=== PATIENT | female | born 1965 | race Hispanic/Latino ===

== ENCOUNTER 2017-09-03 16:17 | Emergency (ER) ==
[~2017-09-03] VITALS: Ht 144.8 cm; Wt 153.8 kg
--- OUTSIDE RECORDS SUMMARY | 2017-09-03 16:21 | XMS REPORT | Clinical Summary ---
Author Author [facility] Address Unknown Phone Unavailable Care Team Providers Care Beater Boss Name Role Phone Provider, Unknown PCP Unavailable Allergies Active Allergy Reactions Severity Noted Date Comments Penicillins 11/12/2016 Current Medications Prescription Sig. Disp. Refills Start End Date Status Date acetaminophen-codeine Take 1-2 tablets by mouth 15 tablet 0 11/14/19 11/24/19 (TYLENOL WITH CODEINE #3) every 6 (six) hours as 17 17 300-30 mg per tablet needed for moderate pain for up to 10 days. ondansetron ODT (ZOFRAN Take 1 tablet (8 mg 9 tablet 0 11/14/19 ODT) 8 MG disintegrating total) by mouth every 8 17 17 tablet (eight) hours as needed for nausea or vomiting for up to 3 days. Active Problems Not on file Encounters Date Type Specialty Care Team Description 11/12/2016 Emergency Emergency Medicine Bob Mistry MD Flank pain (Primary Dx) - 11/13/2016 after 09/02/2016 Social History Tobacco Use Types Packs/Day Years Used Date Never Smoker Smokeless Tobacco: Never Used Alcohol Use Drinks/Week oz/Week Comments Yes 12 pack every weekend Sex Assigned at Date Recorded Not on file Last Filed Vital Signs Vital Sign Reading Time Taken Blood Pressure 133/68 11/13/2016 2:10 AM CDT Pulse 71 11/13/2016 2:10 AM CDT Temperature 36.6 C (97.9 F) 11/12/2016 11:33 PM CDT Respiratory Rate 18 11/13/2016 2:10 AM CDT Oxygen Saturation 99% 11/13/2016 2:10 AM CDT Inhaled Oxygen - - Concentration Weight 142 kg (312 lb) 11/12/2016 6:39 PM CDT Height 144.8 cm (4' 9") 11/12/2016 6:39 PM CDT Body Mass Index 67.52 11/12/2016 6:39 PM CDT Plan of Treatment Health Maintenance Due Date Last Done Comments PAP SMEAR 11/24/1988 INFLUENZA VACCINE 11/26/2017 Results * ECG 12 lead (11/13/2016 12:44 AM) Component Value Ref Range Ventricular rate 75 Atrial rate 75 FL interval 148 QRSD interval 92 QT interval 412 QTC interval 460 P axis 1 83 QRS axis 1 -61 T wave axis 31 EKG impression Normal sinus rhythm-Left axis deviation-Low voltage QRS-Possible Anterolateral infarct (cited on or before 10-OCT-2013)-Abnormal ECG-In automated comparison with ECG of 10-OCT-2013 04:03,-Significant changes have occurred- Specimen Performing Laboratory [facility] [address] [place] [address] * CT Renal Stone Protocol (11/13/2016 12:40 AM) Specimen Performing Laboratory [facility] [address] [place] [address] RENAL STONE PROTOCOL CLINICAL INDICATION:L flank pain TECHNIQUE: Multidetector CT of the abdomen and pelvis was performed without intravenous administration of iodinated contrast with multiplanar reformats. CT scans are performed using radiation dose reduction techniques (iterative reconstruction and/or automated exposure control). Technical factors are evaluated and adjusted to ensure appropriate moderation of exposure. Automated dose management technology is applied to adjust radiation exposure while achieving a diagnostic quality image. COMPARISON:None. FINDINGS: Lung bases:Clear. Liver:Normal. Gallbladder and biliary:The gallbladder is absent. Clips within the gallbladder fossa. Pancreas:Normal. Spleen:Normal. Gastrointestinal:Scattered colonic diverticula. Large and small bowel are normal in caliber. Appendix is not visualized. No focal inflammatory changes within the right lower quadrant of the abdomen. Adrenals:Normal. Kidneys and ureters: No renal or ureteral calculi are visualized. Minimal left hydroureteronephrosis. Pelvic phleboliths are noted. Urinary bladder: No urinary bladder calculi are visualized. Lymph nodes:No enlarged lymph nodes in the abdomen or pelvis. Peritoneum:No ascites or free air. Vascular:Unremarkable, though evaluation of vessel lumens is limited due to lack of IV contrast. Reproductive organs:Uterus is absent. Prominent left adnexal structure measuring 5.1 x 4.0 cm. Abdominal wall: Small fat-containing periumbilical hernia. Bones:Mild degenerative changes. IMPRESSION: 1. Minimal left hydroureteronephrosis. However, no renal, ureteral, or urinary bladder calculi are visualized. Findings may represent recently passed left ureteral stone or left vesicoureteral reflux/urinary tract infection. 2. Prominent left adnexal structure likely representing left ovary. Pelvic ultrasound could further evaluate if clinically indicated. [facility]-[id number] Procedure Note Interface, Radiology Results Incoming - 11/13/2016 12:[address] RENAL STONE PROTOCOL CLINICAL INDICATION: L flank pain TECHNIQUE: Multidetector CT of the abdomen and pelvis was performed without intravenous administration of iodinated contrast with multiplanar reformats. CT scans are performed using radiation dose reduction techniques (iterative reconstruction and/or automated exposure control). Technical factors are evaluated and adjusted to ensure appropriate moderation of exposure. Automated dose management technology is applied to adjust radiation exposure while achieving a diagnostic quality image. COMPARISON: None. FINDINGS: Lung bases: Clear. Liver: Normal. Gallbladder and biliary: The gallbladder is absent. Clips within the gallbladder fossa. Pancreas: Normal. Spleen: Normal. Gastrointestinal: Scattered colonic diverticula. Large and small bowel are normal in caliber. Appendix is not visualized. No focal inflammatory changes within the right lower quadrant of the abdomen. Adrenals: Normal. Kidneys and ureters: No renal or ureteral calculi are visualized. Minimal left hydroureteronephrosis. Pelvic phleboliths are noted. Urinary bladder: No urinary bladder calculi are visualized. Lymph nodes: No enlarged lymph nodes in the abdomen or pelvis. Peritoneum: No ascites or free air. Vascular: Unremarkable, though evaluation of vessel lumens is limited due to lack of IV contrast. Reproductive organs: Uterus is absent. Prominent left adnexal structure measuring 5.1 x 4.0 cm. Abdominal wall: Small fat-containing periumbilical hernia. Bones: Mild degenerative changes. IMPRESSION: 1. Minimal left hydroureteronephrosis. However, no renal, ureteral, or urinary bladder calculi are visualized. Findings may represent recently passed left ureteral stone or left vesicoureteral reflux/urinary tract infection. 2. Prominent left adnexal structure likely representing left ovary. Pelvic ultrasound could further evaluate if clinically indicated. [facility]-[id number] * XR Chest 2 Vw (11/13/2016 12:14 AM) Specimen Performing Laboratory [facility] [address] [place] [address] Narrative EXAMINATION: XR CHEST 2 VW CLINICAL HISTORY: Chest Pain COMPARISON:None. IMPRESSION: Mild pulmonary vascular congestion. No focal or confluent airspace consolidation. No pleural effusion or pneumothorax. The cardiac silhouette is borderline enlarged. Tortuous thoracic aorta. No acute osseous abnormalities. [facility]-[id number] Procedure Note Hm Interface, Radiology Results Incoming - 11/13/2016 12:19 AM CDT EXAMINATION: XR CHEST 2 VW CLINICAL HISTORY: Chest Pain COMPARISON: None. IMPRESSION: Mild pulmonary vascular congestion. No focal or confluent airspace consolidation. No pleural effusion or pneumothorax. The cardiac silhouette is borderline enlarged. Tortuous thoracic aorta. No acute osseous abnormalities. [facility]-[id number] * Estimated GFR (11/12/2016 11:50 PM) Component Value Ref Range GFR Non Af Amer >90 mL/min/1.73 m2 GFR Af Amer >90 mL/min/1.73 m2 Comment: Chronic kidney disease: <60 mL/min/1.73m2 Kidney failure: <15 mL/min/1.73m2 The estimated GFR is calculated from the IDMS-traceable Modification of Diet in Renal Disease Equation. The accuracy of the calculation is poor when the creatinine is normal. Calculated values >90 mL/min/1.73m2 are not reported. This equation has not been validated in children (<18 years), women, the elderly (>70 years), or ethnic groups other than Caucasians and Americans. Specimen Performing Laboratory Plasma specimen [facility] DEPARTMENT OF PATHOLOGY AND GENOMIC MEDICINE [address] [place] [address]. [address] [place] [id number] * Troponin (11/12/2016 11:50 PM) Component Value Ref Range Troponin <0.300 0.000 - 0.300 ng/mL Comment: The diagnostic value of a single normal or non-diagnostic result is questionable. Serial samples at 2-6 hour intervals are required to rule out acute myocardial injury. Specimen Performing Laboratory Plasma specimen [facility] DEPARTMENT OF PATHOLOGY AND GENOMIC MEDICINE [address] [place] [address]. [address] [place] [id number] * CBC with platelet and differential (11/12/2016 11:50 PM) Component Value Ref Range WBC 6.7 4.5 - 11.0 k/uL RBC 3.89 (L) 4.20 - 5.50 M/uL HGB 10.6 (L) 14.0 - 18.0 g/dL HCT 35.3 (L) 37.0 - 47.0 % MCV 90.7 82.0 - 100.0 fL MCH 27.2 27.0 - 34.0 pg MCHC 30.0 (L) 31.0 - 37.0 g/dL RDW - SD 46.5 37.0 - 55.0 fL MPV 10.5 8.8 - 13.2 fL Platelet count 241 150 - 400 K/uL Nucleated RBC 0.00 /100 WBC Neutrophils 77.3 (H) 39.0 - 69.0 % Lymphocytes 15.5 (L) 25.0 - 45.0 % Monocytes 4.6 0.0 - 10.0 % Eosinophils 2.1 0.0 - 5.0 % Basophils 0.1 0.0 - 1.0 % Immature granulocytes 0.4Comment: "Immature granulocytes" 0.0 - 1.0 % (promyelocytes, myelocytes, metamyelocytes) Specimen Performing Laboratory Blood [facility] DEPARTMENT OF PATHOLOGY AND GENOMIC MEDICINE [address] [place] [id number] * Lipase level (11/12/2016 11:50 PM) Component Value Ref Range Lipase 29 23 - 300 U/L Specimen Performing Laboratory Plasma specimen [facility] PATHOLOGY AND [address] [place] [id number] * Comprehensive metabolic panel (11/12/2016 11:50 PM) Component Value Ref Range Sodium 139 135 - 148 mEq/L Potassium 4.1 3.5 - 5.0 mEq/L Chloride 100 99 - 109 mEq/L CO2 28 24 - 31 mEq/L Anion gap 11 7 - 15 mEq/L Comment: Starting from July , anion gap calculation no longer incorporates potassium. Please note the change. BUN 11 8 - 24 mg/dL Creatinine 0.6 0.5 - 1.5 mg/dL Glucose 122 (H) 65 - 99 mg/dL Calcium 8.9 8.6 - 10.6 mg/dL Protein 8.9 (H) 6.3 - 8.2 g/dL Albumin 3.9 3.5 - 5.0 g/dL A/G ratio 0.78 0.70 - 3.80 Alkaline phosphatase 66 30 - 115 U/L AST 20 15 - 46 U/L ALT 18 10 - 55 U/L Total bilirubin 1.1 0.2 - 1.2 mg/dL Specimen Performing Laboratory Plasma specimen [facility] DEPARTMENT OF PATHOLOGY AND GENOMIC MEDICINE [address] [place] [address] * Urinalysis screen and microscopy, with reflex to culture (11/12/2016 11:24 PM) Component Value Ref Range Specimen site Clean catch Color, UA Yellow YELLOW Appearance, UA Slightly Hazy (A) Clear Specific gravity, UA 1.016 1.005 - 1.030 pH, UA 5.5 5.0 - 8.0 Protein, UA Trace (A) Negative Glucose, UA Negative Negative Ketones, UA Negative Negative Bilirubin, UA Negative Negative Blood, UA Negative Negative Nitrite, UA Negative NEGATIVE Urobilinogen, UA <2.0 <2.0 E.U./dL Leukocyte esterase, UA Negative Negative Epithelial cells, UA 4 0 - 15 /HPF WBC, UA 4 0 - 5 /Hpf RBC, UA 1 0 - 5 /HPF Bacteria, UA None seen None seen Yeast, UA None seen None Seen Yeast with pseudohyphae, None seen UA Specimen Performing Laboratory Urine [facility] DE[facility]MENT OF PATHOLOGY AND GENOMIC MEDICINE [address] [place] [address] * hCG qualitative, urine screen (11/12/2016 11:24 PM) Component Value Ref Range hCG qualitative, urine NegativeComment: Sensitivity of HCG test: 25 Negative mIU/ml Specimen Performing Laboratory Urine [facility] DE[facility] OF PATHOLOGY AND GENOMIC MEDICINE [address] [place] [address] * Urine culture (11/12/2016 10:35 PM) Component Value Ref Range Urine culture SEE COMMENTComment: Bacteriuria screen negative. Specimen Performing Laboratory [facility] DEPARTMENT OF PATHOLOGY AND GENOMIC MEDICINE [address] [place] [address] after 09/02/2016 Insurance Payer Benefit Subscriber ID Type Phone Address Plan / Group [employer] MED[employer] xxxxxxxxx HMO COMM [employer]+ [address] Kinsey [place] [id number]
== END 2017-09-03 17:01 | disposition left against medical advice (07) ==
LOC: ER 16:17
DX: R10.30 Lower abdominal pain, unspecified (principal); C56.9 Malignant neoplasm of unspecified ovary
CPT/HCPCS: 99281